=== PATIENT | male | born 1990 | race Caucasian/White ===

== ENCOUNTER 2024-12-02 10:25 | Emergency (ER) | payer SELFPAY ==
--- NOTE | ~2024-12-02 | XR_ITS ---
XR hand LT min 3V 12/02/2024 11:27 INDICATION: Left hand pain PROCEDURE: 4 views left hand COMPARISON: No prior studies for comparison. FINDINGS: Fracture, dislocation or subluxation is not identified. The soft tissues appear within normal limits. No foreign bodies are identified. IMPRESSION: 1: NO ACUTE BONE OR JOINT ABNORMALITY IDENTIFIED. Reviewed, dictated and finalized at location O.
--- NOTE | ~2024-12-02 | CT_ITS ---
EXAMINATION: CT cervical spine wo con COMPARISON: None HISTORY: syncope TECHNIQUE: Axial images were obtained through the spine without IV contrast. Coronal, sagittal reconstruction images were obtained from the axial views. CT scan performed using dose optimization techniques including the following automated exposure control; adjustment of mA and/or kV; use of iterative reconstruction technique. Automatic exposure control was used to reduce radiation dose. Permanent radiation dose record is archived to PACS. FINDINGS: The vertebral heights are intact. No fracture or subluxation. The disc heights are intact. Soft tissues unremarkable. Impression: No acute abnormality. Reviewed, dictated and finalized at location P. Impression: No acute abnormality.
--- NOTE | ~2024-12-02 | CT_ITS ---
EXAMINATION: CT brain wo con COMPARISON: None HISTORY: syncope TECHNIQUE: Axial images were obtained through the brain without IV contrast. CT scan performed using dose optimization techniques including the following automated exposure control; adjustment of mA and/or kV; use of iterative reconstruction technique. Automatic exposure control was used to reduce radiation dose. Permanent radiation dose record is archived to PACS. FINDINGS: No acute infarct or parenchymal hemorrhage. No abnormal mass or mass effect. No midline shift. No extra-axial fluid collections. No hydrocephalus. . Mastoid air cells unremarkable. Sinuses and orbits unremarkable. No acute fracture. No significant facial or scalp soft tissue swelling evident. No radiopaque foreign body is seen. Impression: 1.No acute intracranial abnormality. Reviewed, dictated and finalized at location P. Impression: 1.No acute intracranial abnormality.
--- NOTE | 2024-12-02 10:19 | ED.SYNCOPE ---
HPI - Syncope General Chief Complaint: Syncope Stated Complaint: syncope, fall Time Seen by Provider: 12/02/24 10:30 Source: patient Mode of arrival: ambulatory Limitations: no limitations History of Present Illness HPI narrative: Pati is a 34-year-old male patient being brought in via EMS to the ER today with complaints of left hand injury, syncopal episode, and head laceration. He reports around 930 this morning he struck his hand and this caused him to feel faint and passed out-he fell backwards in his head on a metal cart causing a 2 cm laceration to the posterior scalp. Bleeding is controlled. Patient is reporting a light headache with some pain radiating into his neck. He reports he did eat breakfast this morning. No history of hypoglycemia or diabetes. Denies any dizziness, visual changes, chest pain, or shortness of breath. Tetanus is up-to-date within the last 5 years. Related Data Allergies Allergy/AdvReac Type Severity Reaction Status Date / Time No Known Allergies Allergy Verified 12/02/24 10:29 Review of Systems Review of Systems: Pertinent positives per HPI. Patient denies any fever, chills, rash, visual changes, dizziness, cough, runny nose, sore throat, shortness of breath, chest pain, palpitations, nausea, vomiting, diarrhea, constipation, abdominal pain, or any urinary issues. PMFSH Comments At the time of my signature, I reviewed and agree with the nursing past medical, surgical, social, and family history. There is no relevant family history pertinent to the patient complaint. Exam Narrative: General: Well-developed, well nourished, in no apparent distress Head: Normocephalic, 2 cm posterior laceration to the occipital lobe/scalp Eyes: Pupils equally round and reactive to light bilaterally, EOM intact, sclera and conjunctive clear, no discharge, lids normal Ears: TMs intact and clear, ear canals clear, no drainage, grossly hearing normal. Nose: Nares patent, no discharge, no inflammation, no sinus tenderness. Mouth: Oropharynx without lesions or masses, good dentition, MMM. Tongue midline, even rise and fall of uvula Neck: Supple, trachea midline, no enlargement of anterior or posterior cervical nodes, no thyroid masses or goiter palpable. Cardio: Regular rate and rhythm, s1 and s2 normal, no murmur appreciated. Resp: Clear to auscultation bilaterally anteriorly and posteriorly, no rhonchi, rales, wheezing or rubs Musculoskeletal: No deformity, tender to palpation over the posterior scalp and cervical spine, tenderness to palpation over the dorsal hand, pain with flexion and extension of his fingers, grossly normal range of motion, muscle strength strong and equal, peripheral pulse strong, no edema, no cyanosis, normal gait and station Neuro: Alert and oriented x4 with normal speech, no focal deficits, cranial nerves I through XII intact, muscle strength 5 out of 5, sensation intact bilaterally Course Course Emergency Course: Portions of this record may have been created with voice recognition software. Vital Signs Vital signs: Vital Signs Temperature 36.6 C 12/02/24 10:23 Pulse Rate 72 12/02/24 10:23 Respiratory Rate 16 12/02/24 10:23 Blood Pressure 128/77 12/02/24 10:23 Pulse Oximetry 100 12/02/24 10:23 Oxygen Delivery Room Air 12/02/24 10:23 Temperature 36.6 C 12/02/24 10:23 Pulse Rate 72 12/02/24 12:16 Respiratory Rate 18 12/02/24 12:16 Blood Pressure 115/70 12/02/24 12:16 Pulse Oximetry 100 12/02/24 12:16 Oxygen Delivery Room Air 12/02/24 10:23 Vital signs reviewed Procedures Laceration Laceration 1: Date: 12/02/24 Site: scalp Size (cm): 2 Description: irregular and clean Depth: simple, single layer Pre-repair: wound explored and irrigated ====== Skin Level ====== Skin layer closed with: robert Number of sutures: 4 ====== Subcutaneous Layer ====== ====== Muscle Layer ====== ====== Tendon Layer ====== Dressing: Verbal consent obtained for laceration repair. Risk and benefits explained and patient voiced understanding. Area was cleansed with sterile normal saline. Four robert were placed bringing wound edges together-well approximated. Patient tolerated procedure well. Triple antibiotic ointment applied MDM - Syncope MDM Narrative Medical decision making narrative: At the time of visit patient is resting comfortably on the exam table. Patient appears to be nontoxic. Complaints of left hand injury, syncopal episode, and head laceration. He reports around 930 this morning he struck his hand and this caused him to feel faint and passed out-he fell backwards in his head on a metal cart causing a 2 cm laceration to the posterior scalp. Bleeding is controlled. Patient is reporting a light headache with some pain radiating into his neck. He reports he did eat breakfast this morning. No history of hypoglycemia or diabetes. Denies any dizziness, visual changes, chest pain, or shortness of breath. Tetanus is up-to-date within the last 5 years. EKG: EKG shows normal sinus rhythm with heart rate of 60 beats per minute. No ST elevation, depression, or T-wave inversion. Labs: CBC shows white blood cell count of 12, H and H of 15.5 and 44.4, platelet counts 259, anti coagulation studies within normal limits, chemistry within normal limits, glucose was 104, troponin less than 0.012 Diagnostics: X-ray of the left hand is negative for any fracture, CT of the head shows no acute intracranial abnormality, CT T of the cervical spine shows no acute fracture or malalignment Procedures: Laceration repair was performed to the occipital scalp. Area was cleansed with sterile normal saline and 4 robert were placed bringing wound edges well approximate. Patient tolerated well. Plan: I suspect patient has vasovagal response due to left hand injury, closed head injury, and occipital scalp head laceration. All testing results were reviewed with the patient and he voiced understanding. Head injury instructions/red flags reviewed. Return to PCP/Express care for staple removal in 5-7 days. Supportive measures were discussed with the patient and they voiced understanding discharge instructions and agrees to treatment plan. Return precautions reviewed Differential Diagnosis Differential diagnosis: Likely syncope due to orthostatic hypotension, vasovagal syncope, subarachnoid hemorrhage and dehydration Lab Data 12/02/24 11:25 12/02/24 11:25 Labs: Lab Results 12/02/24 Range/Units 11:25 WBC 12.0 H (4.5-10.0) K/mm3 RBC 4.86 (4.6-6.20) M/mm3 Hgb 15.5 (14.0-18.0) g/dL Hct 44.4 (42.0-52.0) % MCV 91.4 (80-100) fl MCH 31.9 (26-34) pg MCHC 34.9 (32-36) g/dl RDW 12.4 (11.5-14.5) % Plt Count 259 (150-375) k/mm3 MPV 11.2 H (7.4-10.4) fl Immature Gran % (Auto) 0.6 H (0-0.5) % Neut % (Auto) 81.5 H (45.5-73.1) % Lymph % (Auto) 10.6 L (18.3-44.2) % Esmeralda % (Auto) 6.7 (2.6-8.5) % Eos % (Auto) 0.2 (0-4.4) % Baso % (Auto) 0.4 (0.2-1.2) % Lymph # (Auto) 1.27 (0.9-3.2) K/mm3 Esmeralda # (Auto) 0.8 H (0.1-0.6) K/mm3 Eos # (Auto) 0.0 (0-0.3) K/mm3 Baso # (Auto) 0.1 (0.0-0.1) K/mm3 Abs Immat Gran (auto) 0.07 H (0.00-0.031) K/mm3 Absolute Neuts (auto) 9.8 H (1.3-6.7) K/mm3 Absolute Nucleated RBC 0.000 (0.0-0.012) K/mm3 Nucleated RBC % 0.0 (0.0-0.2) % PT 12.6 (11.1-14.7) Seconds INR 0.9 APTT 22.6 (22.3-36.8) Seconds Sodium 140 (137-145) mmol/L Potassium 4.2 (3.4-5.0) mmol/L Chloride 102 (98-107) mmol/L Carbon Dioxide 27 (22-30) mmol/L Anion Gap 11 (4-12) mmol/L BUN 14 (9-20) mg/dL Creatinine 1.00 (0.7-1.3) mg/dL Estim Creat Clear Calc 103 ml/min Estimated GFR > 60 (59 - ) Glucose 104 (65-110) mg/dL Calcium 9.6 (8.4-10.2) mg/dL Total Bilirubin 1.1 (0.2-1.3) mg/dL AST 33 (17-59) U/L ALT 17 (6-50) U/L Alkaline Phosphatase 73 (38-126) U/L Troponin I < 0.012 (0.000-0.034) ng/mL Total Protein 8.5 H (6.3-8.2) g/dL Albumin 5.0 (3.5-5.1) g/dL Imaging Data Radiologist's impression: ITS Impressions Head CT 12/02/24 10:55 Impression: 1.No acute intracranial abnormality. Cervical Spine CT 12/02/24 10:58 Impression: No acute abnormality. Hand X-Ray 12/02/24 11:28 IMPRESSION: 1: NO ACUTE BONE OR JOINT ABNORMALITY IDENTIFIED. ECG Data EKG #1: Attestation: I personally reviewed and interpreted this ECG as follows: ECG completion date: 12/02/24 ECG completion time: 10:30 Prior ECG tracings: not available for review Interpretation: EKG shows sinus rhythm with a heart rate of [address] elevation, depression, or T-wave inversion. KS interval is 150 milliseconds, QRS duration 90 once milliseconds, QT-QTC is 387-387 milliseconds, P-R-T axis is 63 1 35 Discharge Plan Discharge Clinical Impression: Vasovagal syncope, Hand pain, left Head injury Qualifiers: Encounter type: initial encounter Qualified Code(s): S09.90XA - Unspecified injury of head, initial encounter Laceration of occipital scalp Qualifiers: Encounter type: initial encounter Qualified Code(s): S01.01XA - Laceration without foreign body of scalp, initial encounter Patient Disposition: Home Condition: Stable Instructions: Antibiotic Form, Laceration (ED), Syncope (ED), Head Injury (ED), Contusion in Adults (ED) Additional Instructions: CT of your head, CT of the neck, and x-ray of your hand are all negative. 4 robert were placed to the back of your head to close your scalp wound. Laceration discharge instructions: Leave bandage on for 24 hours then may remove and apply band aide covering as needed. Keep wound clean and dry. If head laceration- robert out in 5-7 days. Follow up with your PCP for staple removal or return to the Express care. Watch for signs and symptoms of infection- redness, streaking, swelling, purulent discharge, or increase in pain. Head injury instructions: Tylenol as needed for headache for the first 24 hours then may take Ibuprofen, Increase fluids and stay well hydrated Change positions slowly He well-balanced meals Increase fluids and stay well hydrated. Avoid taking any sedative medications such as muscle relaxers, benadryl, benzos, or narcotic pain medication. Watch for red flag symptoms such as confusion, lethargy, nausea/vomiting, worsening of headache, visual changes, increase in dizziness, or any stroke-like symptoms. If these symptoms develop go to the Emergency Room immediately. Reduce stimuli- lights, computers, video games, smart phones, tv, and noise over the next 2 days. Increase stimuli gradually. If headache worsens with stimuli reduce stimuli to tolerable level. . Follow up with your PCP in 5- 7 days if symptoms persist as post-concussion syndrome treatment may need to be initiated. Patient Language: [place] Time of Disposition: 13:10 Quality NIHSS Nursing Documentation ED NIHSS nursing documentation: reviewed/agree
[2024-12-02 10:23] VITALS: BP 128/77; PULSE 72; RESP 16; TEMP 36.6; O2SAT 100
--- NOTE | 2024-12-02 10:42 | ECG_ITS ---
Test Date: 2024-12-02 10:30:30 Measurements Intervals [place] Rate: 60 P: 63 [place]: 150 QRS: 1 QRSD: 91 T: 35 QT: 387 QTc: 387 Interpretive Statements SINUS RHYTHM DELAYED PRECORDIAL R/S TRANSITION BORDERLINE ECG No previous ECG available for comparison Electronically Signed On 12-02-2024 11:26:20 CDT by Latrell Pacheco D.O.
[2024-12-02 11:00] VITALS: BP 112/61; PULSE 73; RESP 20; O2SAT 99
[2024-12-02 11:29] VITALS: BP 104/64; PULSE 61; RESP 12; O2SAT 100
[2024-12-02 11:31] VITALS: BP 117/70; PULSE 70; RESP 12; O2SAT 100
[2024-12-02 11:34] LABS: Hematocrit 44.4 % (42.0-52.0); Hemoglobin 15.5 g/dL (14.0-18.0); Immature Granulocyte Percent A 0.6 % (0-0.5); Lymphocytes Absolute Auto 1.27 K/mm3 (0.9-3.2); Mean Corpuscular HGB Conc 34.9 g/dl (32-36); Mean Corpuscular Hemoglobin 31.9 pg (26-34); Mean Corpuscular Volume 91.4 fl (80-100); Nucleated Red Blood Cells Absolute Auto 0.000 K/mm3 (0.0-0.012); Nucleated Red Blood Cells Perc 0.0 % (0.0-0.2); Platelet Count Result 259 k/mm3 (150-375); Red Blood Count 4.86 M/mm3 (4.6-6.20); White Blood Count 12.0 K/mm3 (4.5-10.0)
[2024-12-02 11:49] LABS: Alanine Aminotransferase 17 U/L (6-50); Albumin Level 5.0 g/dL (3.5-5.1); Alkaline Phosphatase 73 U/L (38-126); Anion Gap 11 mmol/L (4-12); Aspartate Amino Transferase 33 U/L (17-59); Bilirubin,Total 1.1 mg/dL (0.2-1.3); Blood Urea Nitrogen 14 mg/dL (9-20); Calcium 9.6 mg/dL (8.4-10.2); Carbon Dioxide 27 mmol/L (22-30); Chloride 102 mmol/L (98-107); Estimated CRCL calculation 103 ml/min; Estimated Glomerular Filt Rate > 60; Glucose 104 mg/dL (65-110); Sodium 140 mmol/L (137-145); Total Protein 8.5 g/dL (6.3-8.2)
[2024-12-02 11:51] LABS: INR 0.9; Partial Thromboplastin Time 22.6 Seconds (22.3-36.8); Prothrombin Time 12.6 Seconds (11.1-14.7)
[2024-12-02 11:56] LABS: Troponin I < 0.012 ng/mL (0.000-0.034)
[2024-12-02 11:57] LABS: Potassium 4.2 mmol/L (3.4-5.0)
[2024-12-02 12:16] VITALS: BP 115/70; PULSE 72; RESP 18; O2SAT 100
--- OUTSIDE RECORDS SUMMARY | 2024-12-02 12:27 | XMS_ITS | Encounter Summary ---
Author Organization [facility] Address [address] [place] [address] Care Team Providers Care Housekeeping Aide Name Role Phone Samantha Lynn MD Primary Care Provider [phone] Encounter Details Date Type Department Care Team (Late st Contact Info) Description 04/30/2006 Outpatient Historical [facility] 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
--- OUTSIDE RECORDS SUMMARY | 2024-12-02 12:27 | XMS_ITS | Clinical Summary ---
Author Organization [facility] Address [address] [place] [address] Care Team Providers Care Help Desk Operator Name Role Phone Samantha Lynn MD Primary Care Provider [phone] Allergies No known active allergies Medications No known medications Active Problems Problem Noted Date Diagnosed Date Muscle strain 05/09/2009 Immunizations Immunization Administration Dates Next Due (ADACEL/BOOSTRIX)(10 YR UP) TDAP VACCINE, 0.5ML, IM 03/13/2022 Family History Medical History Relation Name Comments No Known Problems Father Heart Disease Maternal Grandfather Chas harper resulting in immediate surgery Breast Cancer Maternal Grandmother Cata Melendez No Known Problems Mother Heart Disease Other Heart Disease Paternal Grandfather Jesse Ann Heart attack Relation Name Status Comments Father Maternal Grandfather Chas Melendez Maternal Grandmother Cata Melendez Mother Other Paternal Grandfather Jesse Ann Social History Tobacco Use Types Packs/Day Years Used Date Smoking Tobacco: Some Days Cigars Tobacco Cessation:Ready to Q uit: Not Asked; Counseling Given: Not Answered Comments:cigars very rarely on occasional outings. Maybe 2-3 times a year. Alcohol Use Standard Drinks/Week Comments Yes 1 (1 standard drink = 0.6 oz pure alcohol) Very rarely outside of a splash in coffee. 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 Gender Identity Not on file Sexual Orientation Not on file Last Filed Vital Signs Vital Sign Reading Time Taken Comments Blood Pressure 122/70 03/13/2022 8:29 AM PRESIDENT & CEO Pulse 79 03/13/2022 8:29 AM PRESIDENT & CEO Temperature 36.4 C (97.5 F) 03/13/2022 8:29 AM PRESIDENT & CEO Respiratory Rate 20 03/13/2022 8:29 AM PRESIDENT & CEO Oxygen Saturation 98% 03/13/2022 8:29 AM PRESIDENT & CEO Inhaled Oxygen Concentration - - Weight 102.5 kg (226 lb) 03/13/2022 8:29 AM PRESIDENT & CEO Height 182.9 cm (6') 03/13/2022 8:29 AM PRESIDENT & CEO Body Mass Index 30.65 03/13/2022 8:29 AM PRESIDENT & CEO Plan of Treatment Health Maintenance Due Date Last Done Comments HEPATITIS B VACCINES (1 of 3 - 19+ 3-dose series) 02/28/2011 HPV VACCINES (1 - 3-dose SCD M series) 02/28/2019 Preventative Visit- Commercial 02/11/2024 0 03/13/2022, 12/16/2006, 11/27/2002, Additional history exists INFLUENZA VACCINE (#1) 2024 DTAP/TDAP/TD VACCINES (2 - T d or Tdap) 03/13/2032 03/13/2022 Insurance [facility] CHOICE [id number] Care Teams Help Desk Operator Relationship Specialty Start Date End Date Samantha Lynn MD [address] [place] [address] PCP - General Internal Medicine 03/13/22
--- OUTSIDE RECORDS SUMMARY | 2024-12-02 12:27 | XMS_ITS | Encounter Summary ---
Author Organization [facility] Address [address] [place] [address] Care Team Providers Care Church Musician Name Role Phone Samantha Lynn MD Primary Care Provider [phone] Encounter Details Date Type Department Care Team (Late st Contact Info) Description 11/27/2002 Outpatient [facility] 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
--- OUTSIDE RECORDS SUMMARY | 2024-12-02 12:27 | XMS_ITS | Encounter Summary ---
Author Organization [facility] Address [address] [place] [address] Care Team Providers Care Remediation Project Engineer Name Role Phone Samantha Lynn MD Primary Care Provider [phone] Encounter Details Date Type Department Care Team (Late st Contact Info) Description 01/23/1998 Outpatient [facility] 21 [facility] 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
--- OUTSIDE RECORDS SUMMARY | 2024-12-02 12:27 | XMS_ITS | Encounter Summary ---
Author Organization [facility] Address [address] [place] [address] Care Team Providers Care Guard Immigration Name Role Phone Samantha Lynn MD Primary Care Provider [phone] Encounter Details Date Type Department Care Team (Late st Contact Info) Description 04/04/1998 Outpatient Historical [facility] 21 [facility] [address] [place] [phone] Wesly Reyna MD NO ADDRESS ON FILE Social History Tobacco Use Types Packs/Day Years Used Date Smoking Tobacco: Never Assessed Sex and Gender Information Value Date Recorded Sex Assigned at Not on file Legal Sex Male 4:39 AM A R COLLECTIONS REP Gender Identity Not on file Sexual Orientation Not on file documented as of this encounter Plan of Treatment Not on file documented as of this encounter Visit Diagnoses Not on filedocumented in this encounter Care Teams Guard Immigration Relationship Specialty Start Date End Date Samantha Lynn MD [address] [place] [phone] PCP - General Internal Medicine 03/13/22 documented as of this encounter
--- OUTSIDE RECORDS SUMMARY | 2024-12-02 12:27 | XMS_ITS | Encounter Summary ---
Author Organization [facility] Address [address] [place] [address] Care Team Providers Care Environmental Remediation Engineer Name Role Phone Samantha Lynn MD Primary Care Provider [phone] Encounter Details Date Type Department Care Team (Late st Contact Info) Description 06/10/2003 Outpatient [facility] 21 [facility] 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
--- OUTSIDE RECORDS SUMMARY | 2024-12-02 12:27 | XMS_ITS | Encounter Summary ---
Author Organization [facility] Address [address] [place] [address] Care Team Providers Care Tower Erector Name Role Phone Samantha Lynn MD Primary Care Provider [phone] Encounter Details Date Type Department Care Team (Late st Contact Info) Description 03/05/2005 Outpatient [facility] 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
--- OUTSIDE RECORDS SUMMARY | 2024-12-02 12:27 | XMS_ITS | Encounter Summary ---
Author Organization [facility] Address [address] [place] [address] Care Team Providers Care Batch Plant Operator Name Role Phone Samantha Lynn MD Primary Care Provider [phone] Encounter Details Date Type Department Care Team (Late st Contact Info) Description 11/26/2000 Outpatient [facility] 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
--- OUTSIDE RECORDS SUMMARY | 2024-12-02 12:27 | XMS_ITS | Encounter Summary ---
Author Organization [facility] Address [address] [place] [address] Care Team Providers Care Major Donor Coordinator Name Role Phone Samantha Lynn MD Primary Care Provider Encounter Details Date Type Department Care Team (Late st Contact Info) Description 12/16/2006 Outpatient Historical [facility] 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
--- OUTSIDE RECORDS SUMMARY | 2024-12-02 12:27 | XMS_ITS | Encounter Summary ---
Author Organization [facility] Address [address] [place] [address] Care Team Providers Care Stenotypist Name Role Phone Samantha Lynn MD Primary Care Provider [phone] Encounter Details Date Type Department Care Team (Late st Contact Info) Description 08/15/2004 Outpatient Historical [facility] 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
--- OUTSIDE RECORDS SUMMARY | 2024-12-02 12:28 | XMS_ITS | Encounter Summary ---
Author Organization [facility] Address [address] [place] [address] Care Team Providers Care Product Marketing Specialist Name Role Phone Samantha Lynn MD Primary Care Provider [phone] Encounter Details Date Type Department Care Team (Late st Contact Info) Description 10/07/2000 Outpatient [facility] 21 [facility] 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
--- OUTSIDE RECORDS SUMMARY | 2024-12-02 12:28 | XMS_ITS | Encounter Summary ---
Author Organization [facility] Address [address] [place] [address] Care Team Providers Care Screwhead Stoner And Polisher Name Role Phone Samantha Lynn MD Primary Care Provider [phone] Encounter Details Date Type Department Care Team (Late st Contact Info) Description 12/12/1997 Outpatient Historical [facility] 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
--- OUTSIDE RECORDS SUMMARY | 2024-12-02 12:28 | XMS_ITS | Encounter Summary ---
Author Organization [facility] Address [address] [place] [address] Care Team Providers Care Skinner Pelts Name Role Phone Samantha Lynn MD Primary Care Provider [phone] Encounter Details Date Type Department Care Team (Late st Contact Info) Description 10/31/1998 Outpatient Historical [facility] 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
--- OUTSIDE RECORDS SUMMARY | 2024-12-02 12:28 | XMS_ITS | Encounter Summary ---
Author Organization [facility] Address [address] [place] [address] Care Team Providers Care Fleet Maintenance Manager Name Role Phone Samantha Lynn MD Primary Care Provider [phone] Encounter Details Date Type Department Care Team (Late st Contact Info) Description 04/24/1999 Outpatient Historical [facility] 21 [facility] 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
--- OUTSIDE RECORDS SUMMARY | 2024-12-02 12:28 | XMS_ITS | Encounter Summary ---
Author Organization [facility] Address [address] [place] [address] Care Team Providers Care Toll Repairer Central Office Name Role Phone Samantha Lynn MD Primary Care Provider [phone] Encounter Details Date Type Department Care Team (Late st Contact Info) Description 03/25/2000 Outpatient [facility] 21 [facility] 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
--- OUTSIDE RECORDS SUMMARY | 2024-12-02 12:28 | XMS_ITS | Encounter Summary ---
Author Organization [facility] Address [address] [place] [address] Care Team Providers Care Delivery Supervisor Name Role Phone Samantha Lynn MD Primary Care Provider [phone] Encounter Details Date Type Department Care Team (Late st Contact Info) Description 09/05/1998 Outpatient Historical [facility] 21 [facility] 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
--- OUTSIDE RECORDS SUMMARY | 2024-12-02 12:28 | XMS_ITS | Encounter Summary ---
Author Organization [facility] Address [address] [place] [address] Care Team Providers Care Leather Parts Matcher Name Role Phone Samantha Lynn MD Primary Care Provider [phone] Encounter Details Date Type Department Care Team (Late st Contact Info) Description 03/21/1999 Outpatient Historical [facility] 21 [facility] 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
--- OUTSIDE RECORDS SUMMARY | 2024-12-02 12:28 | XMS_ITS | Encounter Summary ---
Author Organization [facility] Address [address] [place] [address] Care Team Providers Care Flat Knitter Helper Name Role Phone Samantha Lynn MD Primary Care Provider [phone] Encounter Details Date Type Department Care Team (Late st Contact Info) Description 07/31/2000 Outpatient Historical [facility] 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
--- OUTSIDE RECORDS SUMMARY | 2024-12-02 12:28 | XMS_ITS | Encounter Summary ---
Author Organization [facility] Address [address] [place] [address] Care Team Providers Care Scoring Machine Operator Name Role Phone Samantha Lynn MD Primary Care Provider [phone] Encounter Details Date Type Department Care Team (Late st Contact Info) Description 12/26/1998 Outpatient Historical [facility] [address] [facility] 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
[2024-12-02 13:34] VITALS: BP 135/81; PULSE 85; RESP 20; O2SAT 100
== END 2024-12-02 13:35 | disposition home or self-care (01) ==
PROVIDERS: Emergency Provider Nurse Practitioner Family
DX: S01.01XA Laceration without foreign body of scalp, initial encounter (principal); M79.642 Pain in left hand; R55 Syncope and collapse; W18.30XA Fall on same level, unspecified, initial encounter
CPT/HCPCS: 12001; 36415; 70450; 72125; 73130; 80053; 84484; 85025; 85610; 85730; 93005; 99284; L0140